=== PATIENT | male | born 1990 | race Hispanic/Latino ===

== ENCOUNTER 2018-07-25 18:53 | Emergency (ER) | payer SELFPAY ==
[2018-07-25 19:03] VITALS: O2SAT 97
[2018-07-25] MEDS ORDERED: Sodium Chloride 0.9% 1,000 ML IV STA (19:22)
--- NOTE | 2018-07-25 19:25 | ED PDOC ---
HPI: Psych/Substance Abuse Chief Complaint (Nursing): Alcohol Ingestion History Per: Other (Friend) History/Exam Limitations: intoxication Additional Complaint(s): 27 yo M presents for alcohol intoxication, patient was with his friend, who is providing most of the history, who states that they were drinking all day today. They live on the 5th floor of a building without an elevator, and the patient could not make it up the stairs past the 3rd floor to get into his apartment. EMS arrived and tried to help the patient into his apartment without success hence why the patient is in the ER. Patient had no trauma, injury, has no complaints. Past Medical History Vital Signs: Last Vital Signs Temp 97.6 F 07/25/18 18:56 Pulse 65 07/25/18 18:56 Resp 12 07/25/18 18:56 BP 136/72 07/25/18 18:56 Pulse Ox 97 07/25/18 18:56 - Family History Family History: States: No Known Family Hx - Allergies Allergies/Adverse Reactions: Allergies Allergy/AdvReac Type Severity Reaction Status Date / Time Unobtainable Allergy Verified 07/25/18 18:55 Review of Systems Review Of Systems: ROS cannot be obtained secondary to pt's inabilty to answer questions. (patient is intoxicated) Physical Exam - Reviewed Vital Signs Reviewed: Yes - Physical Exam Appears: Positive for: Well, Non-toxic, No Acute Distress Head Exam: Positive for: ATRAUMATIC, NORMAL INSPECTION, NORMOCEPHALIC Skin: Positive for: Normal Color, Warm, Dry Eye Exam: Positive for: Normal appearance, EOMI, PERRL, Conjunctival injection ENT: Positive for: Normal ENT Inspection Neck: Positive for: Normal, Painless ROM, Supple (no tenderness) Cardiovascular/Chest: Positive for: Regular Rate, Rhythm. Negative for: Murmur Respiratory: Positive for: Normal Breath Sounds. Negative for: Rhonchi, Wheezing Gastrointestinal/Abdominal: Positive for: Normal Exam, Soft. Negative for: Tenderness, Guarding Back: Positive for: Normal Inspection Extremity: Positive for: Normal ROM Neurologic/Psych: Positive for: Alert, brass reclaimer II-XII (intact), Oriented (x3) - ECG O2 Sat by Pulse Oximetry: 97 Medical Decision Making Medical Decision Making: Plan : - IVF NS bolus - zofran 4 mg IV - alcohol - UDS - FS 83 Will observe the patient until clinically sober. 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
[2018-07-25 20:25] LABS: BARBITURATES, UR NEGATIVE (NEGATIVE); BENZODIAZEPINES, UR NEGATIVE (NEGATIVE); OPIATES, UR NEGATIVE (NEGATIVE); PHENCYCLIDINE, UR NEGATIVE (NEGATIVE)
--- NOTE | 2018-07-25 21:39 | ED PDOC ---
- ECG O2 Sat by Pulse Oximetry: 97 - Progress ED Course And Treament: Patient progressively more aggressive in ED. Ativan 2 mg IM dose Haldol 5 mg IM x 1 dose Re-evaluated noted with increased agitation. Ativan 1 mg iv x 1 dose PATIENT RE-EVALUATED 03:30AM ALERT AND WALKING STEADY. Disposition - Clinical Impression Clinical Impression: Alcohol intoxication - POA Present On Arrival: None - Disposition Disposition: Routine/Home Disposition Time: 03:21 Condition: FAIR Instructions: Alcohol Poisoning
[2018-07-26 03:49] VITALS: BP 139/70; PULSE 86; RESP 16; TEMP 98.4
== END 2018-07-26 03:38 | disposition home or self-care (01) ==
LOC: H.ER 18:53
DX: F10.129 Alcohol abuse with intoxication, unspecified (principal); Y90.8 Blood alcohol level of 240 mg/100 ml or more
CPT/HCPCS: 82948; 96361; 96372; 96374; 96375; 99285; G0480; J1630; J2060; J2405; J7030